=== PATIENT | male | born 2005 | race Caucasian/White ===

== ENCOUNTER 2024-05-28 01:18 | Emergency (ER) | payer SELFPAY ==
[2024-05-28] MEDS ORDERED: levETIRAcetam 500 MG (5 mL) VIAL ONE (01:31)
[2024-05-28] MEDS ORDERED: Metoclopramide HCl 10 MG (2 mL) VIAL ONE (01:46)
[2024-05-28] MEDS ORDERED: diphenhydrAMINE 50 MG/ML VIAL ONE (01:46)
[2024-05-28 02:30] LABS: #Basophils 0.04 10x3/uL (0.0-0.2); %Basophils 0.5 % (0.0-1.0); %Eosinophils 1.4 % (0.0-10.0); %Lymphocytes 39.4 % (28.0-48.0); %Monocytes 10.2 % (0.0-4.0); %Neutrophils 48.1 % (31.0-61.0); Hematocrit 43.7 % (42.0-52.0); Hemoglobin 14.9 g/dL (14.0-18.0); Mean Corpuscular HGB CONC 34.1 g/dL (32.0-36.0); Mean Corpuscular Hemoglobin 28.8 pg (25.0-35.0); Mean Corpuscular Volume 84.5 fL (78.0-98.0); Mean Platelet Volume 10.2 fL (7.4-10.4); Platelet Count 238 10x3/uL (130-400); RBC Distribution Width 11.5 % (11.5-14.5); Red Blood Cell (RBC) Count 5.17 mill/uL (4.00-5.20)
[2024-05-28 02:44] LABS: ALT (SGPT) 10 U/L (8-55); AST (SGOT) 19 U/L (10-45); Albumin 4.3 g/dL (3.5-5.0); Alkaline Phosphatase 59 U/L (50-130); Anion Gap 19 mmol/L (10-20); BUN (Urea Nitrogen) 15 mg/dL (8.4-21.0); Bilirubin, Total 0.3 mg/dL (0.2-1.2); Calc. Creatinine Clearance 0 mL/min (70-130); Calcium 9.4 mg/dL (7.8-10.44); Carbon Dioxide 19 mmol/L (22-29); Chloride 104 mmol/L (98-107); Estimated GFR 106; Globulin 2.9 g/dL (2.4-3.5); Glucose 108 mg/dL (70-105); Potassium 3.4 mmol/L (3.5-5.1); Protein, Total 7.2 g/dL (6.0-8.3); Sodium 139 mmol/L (136-145)
== END 2024-05-28 04:21 | disposition home or self-care (01) ==
LOC: ERS 01:18
DX: G43.909 Migraine, unspecified, not intractable, without status migrainosus (principal); R56.9 Unspecified convulsions; F17.290 Nicotine dependence, other tobacco product, uncomplicated; Z55.0 Illiteracy and low-level literacy
CPT/HCPCS: 36415; 70450; 80053; 85025; 93005; 96361; 96374; 96375; J1200; J1953; J2765